=== PATIENT | female | born 1990 | race Caucasian/White ===

== ENCOUNTER → 2020-04-11 | Outpatient (CLI) | payer BC ==
--- NOTE | 2020-04-11 12:53 | RAD ---
THYROID ULTRASOUND History: TSH deficiency Comparison: None. Findings: Multiple sonographic images of the thyroid gland are submitted. Right lobe measured 5.4 x 2.2 x 1.9 cm. Left lobe measured 4.3 x 1.3 x 1.2 cm. Isthmus measured about 0.2 cm in AP dimension. There is a solid, lobulated, heterogeneous nodule with internal vascularity centered in the mid right gland about 2.2 x 1.5 x 1.6 cm. There are 3 small adjacent likely cysts of the inferior right gland, largest about 0.6 cm. There are also some scattered small cyst of the left gland, largest likely colloid cyst superiorly about 1 cm. Impression: 1. There is a solid hypervascular nodule of the mid right gland up to 3.2 cm. Given size, fine-needle aspiration should be considered. There are no previous exams to evaluate for change. 2. There are cysts of the bilateral thyroid gland. Electronically signed by: Enrrique Hendrickson MD (04/11/2020 12:50 PM) [id number]
== END ==
LOC: US 10:34
PROVIDERS: ATTEND Physician Assistant Medical
DX: E04.1 Nontoxic single thyroid nodule (principal); E03.8 Other specified hypothyroidism
CPT/HCPCS: 76536